=== PATIENT | female | born 1985 | race Hispanic/Latino ===

== ENCOUNTER 2018-01-07 11:27 | Observation (INO) | payer SELFPAY ==
--- NOTE | 2018-01-07 12:04 | RAD ---
PORTABLE URIGHT FRONTAL CHEST RADIOGRAPH: DATE: 01/07/18. COMPARISON: None. HISTORY: Left-sided weakness, left-sided numbness. FINDINGS: Heart and mediastinal contours within normal limits. No pneumothorax, pleural fluid, focal consolida tion, or alveolar edema. IMPRESSION: No acute findings. POS: ELENAH
[2018-01-07 12:07] LABS: #Eosinphils 0.1 thou/uL (0.0-0.7); #Lymphocytes 1.4 thou/uL (1.20-3.40); #Monocytes 0.4 thou/uL (0.11-0.59); #Neutrophils 2.5 thou/uL (1.40-6.50); %Basophils 0.3 % (0.0-1.0); %Eosinophils 1.5 % (0.0-10.0); %Lymphocytes 32.8 % (21.0-51.0); %Monocytes 9.5 % (0.0-10.0); Hemoglobin 11.9 g/dL (12.0-16.0); Mean Corpuscular HGB CONC 33.2 g/dL (32.0-36.0); Mean Corpuscular Hemoglobin 29.6 pg (27.0-31.0); Mean Corpuscular Volume 88.9 fL (78.0-98.0); Mean Platelet Volume 8.8 fL (7.4-10.4); Platelet Count 182 thou/uL (130-400); RBC Distribution Width 11.8 % (11.5-14.5); Red Blood Cell (RBC) Count 4.01 mill/uL (4.20-5.40); White Blood Cell (WBC) Count 4.4 thou/uL (4.8-10.8)
[2018-01-07 12:27] LABS: ALT (SGPT) 15 U/L (8-55); AST (SGOT) 21 U/L (5-34); Albumin 4.3 g/dL (3.5-5.0); Alkaline Phosphatase 68 U/L (40-150); Anion Gap 10 mmol/L (10-20); BUN (Urea Nitrogen) 8 mg/dL (7.0-18.7); Bilirubin, Total 0.4 mg/dL (0.2-1.2); Calc. Creatinine Clearance 0 mL/min (70-130); Calcium 9.4 mg/dL (7.8-10.44); Carbon Dioxide 26 mmol/L (22-29); Chloride 107 mmol/L (98-107); Estimated GFR-MDRD Greater than 90; Globulin 3.1 g/dL (2.4-3.5); Glucose 90 mg/dL (70-105); Potassium 4.1 mmol/L (3.5-5.1); Protein, Total 7.4 g/dL (6.0-8.3); Sodium 139 mmol/L (136-145)
[2018-01-07 12:30] LABS: CKMB 0.7 ng/mL (0-6.6); Troponin I Less than 0.010 ng/mL (< 0.028)
--- NOTE | 2018-01-07 12:32 | CT ---
CT OF THE HEAD: DATE: 01/07/18. COMPARISON: None. HISTORY: Left-sided numbness. TECHNIQUE: Serial axial CT imaging is obtained at 5 mm intervals from the vertex through the skull base without contrast. FINDINGS: The imaged paranasal sinuses/mastoid air cells are well aerated. There is no displaced calvarial fra cture. There is ventriculomegaly noted bilaterally. Bilateral lateral ventricles are enlarged and demonstra te a rounded configuration in the region of the frontal horns. The third ventricle appears dilated a s well. The 4th ventricle is mildly prominent but less so than the lateral ventricles and the 3rd ve ntricle. There is no intracranial hemorrhage, midline shift, or mass effect. IMPRESSION: Ventricular enlargement, especially the 3rd ventricle and bilateral lateral ventricles. This could b e on the basis of a degree of aqueductal stenosis. Under[place] obstructing lesion cannot be fully excl uded. Recommend further evaluation via brain MRI with and without contrast. POS: TOSHIA
--- NOTE | 2018-01-07 13:28 | HP ---
PRIMARY CARE PHYSICIAN: [facility] call admission. REASON FOR ADMISSION: Headache and left upper and lower extremity burning paraesthesia. HISTORY OF PRESENT ILLNESS: This is a 32-year-old female, who speaks Pakistani only, who is accompanied by her . History obtained with a ship manager phone. The patient reports that, 3 days ago, she was experiencing throbbing headache, unilateral, 6/10 in intensity without any association of nausea, vomiting, photophobia, or phonophobia. Patient was taking ibuprofen periodically for her severe headache. Today, she experienced left upper and lower extremity as well as facial burning paraesthesia, and some numbness. She denies any difficulty walking. She denies any associated motor weakness. She denies any shortness of breath. She denies any diplopia or blurred vision. She denies any new medication taken recently. She denies any vomiting or any chest pain or palpitation. She denies any UTI symptoms. She denies any constipation, diarrhea. REVIEW OF SYSTEMS: The following complete review of systems was negative, unless otherwise mentioned in the HPI or below: Constitutional: Weight loss or gain, ability to conduct usual activities. Skin: Rash, itching. Eyes: Double vision, pain. ENT/Mouth: Nose bleeding, neck stiffness, pain, tenderness. Cardiovascular: Palpitations, dyspnea on exertion, orthopnea. Respiratory: Shortness of breath, wheezing, cough, hemoptysis, fever, or night sweats. Gastrointestinal: Poor appetite, abdominal pain, heartburn, nausea, vomiting, constipation, or diarrhea. Genitourinary: Urgency, frequency, dysuria, nocturia. Musculoskeletal: Pain, swelling. Neurologic/Psychiatric: Anxiety, depression. Allergy/Immunologic: Skin rash, bleeding tendency. Please see my HPI for pertinent positive and negative. All other review of systems reviewed and negative except as mentioned in the HPI. ALLERGIES: No known drug allergy. CURRENT HOME MEDICATIONS: The patient is not taking any prescribed medication, but she was lately taking ibuprofen [id number] as needed basis for her headache. PAST MEDICAL HISTORY: Reviewed and negative other than remote history of nephrolithiasis. PAST SURGICAL HISTORY: . PAST PSYCHIATRIC HISTORY: Reviewed and negative. SOCIAL HISTORY: Patient is and lives at home. No history of tobacco, alcohol, or illicit drug abuse. FAMILY HISTORY: No strong family history of premature coronary artery disease, stroke, or cancer. EMERGENCY ROOM COURSE: Reviewed. PHYSICAL EXAMINATION: VITAL SIGNS: On arrival, blood pressure 118/77, pulse 83, respiratory rate 18, temperature 98.2, saturation 99% on room air, weight 96.6 kilograms. GENERAL: Patient is currently alert, awake, in no obvious acute distress. HEENT: Head: Normocephalic, atraumatic. Eyes: Pupils round, reactive to light. Extraocular muscle intact. No nystagmus. ENT: Oropharynx within normal limits. Moist mucous membranes. No oral lesion, no pharyngeal erythema , no exudate. NECK: Supple, no JVD, no thyromegaly, no carotid bruit, no jugular venous distention. LUNGS: Clear to auscultation without any rhonchi or rales. CARDIAC: S1 and S2, regular. No murmur, no gallop, no rub. ABDOMEN: Soft, bowel sounds present, nontender, nondistended. No organomegaly , no mass, no suprapubic tenderness. BACK EXAMINATION: Unremarkable, no CVA tenderness. EXTREMITIES: Upper extremities, passive movement of all joints are normal. Lower extremities, no edema. Good distal pulsation. SKIN: No skin rash. HEMATOLOGICAL SYSTEM: No lymphadenopathy. NEUROLOGIC: The patient is alert and oriented x3. Cranial nerves II-XII intact. Motor 5/5 in all 4 limbs. Sensation: The patient does have subjective paraesthesia on left upper and lower extremity as well as on face. No cerebellar sign. Plantar bilateral flexor. SIGNIFICANT LABORATORY DATA: CT brain done in the emergency room, which is showing ventricular enlargement, especially third and bilateral lateral ventricle. Chest x-ray, based on my review, no acute cardiopulmonary process. CBC: WBC 4.4, hemoglobin 11.9, platelets 182. Sodium 139, potassium 4.1, chloride 107, carbon dioxide 26, anion gap 10, BUN 8, creatinine 0.64, glucose 90, calcium 9.4. LFT: AST 21, ALT 15, alkaline phosphatase 68, albumin 4.3, CK -MB 0.7, troponin 0.010. ASSESSMENT: 1. Pulsatile headache. 2. Ventricular enlargement, especially third and bilateral lateral ventricle, rule out aqueductal stenosis. Another differential is pseudotumor cerebri, secondary hydrocephalus from obstruction needs to be excluded. 3. Leukopenia. 4. Normocytic-normochromic anemia. 5. Morbid obesity. PLAN: Observation to stroke floor, neuro check q.4 hourly. Neurology consult. MRI brain. Symptomatic treatment for headache. We will check TSH, lipid profile, and homocysteine. Deep venous thrombosis prophylaxis not needed, because we are expecting discharge in 24 hours. Gastrointestinal prophylaxis, Pepcid 20 mg p.o. b.i.d. Code status: The patient is FULL CODE. Patient's is surrogate decision maker. Disposition plan based on clinical course and Neurology recommendation. Plan of care discussed with the patient and her at bedside in the emergency room. ESAU
[2018-01-07] MEDS ORDERED: Eucerin (Mineral Oil/Petrolatum,White) 30 gm Jar TOP PRN (14:35)
[2018-01-07] MEDS ORDERED: Artificial Tears 18 DROP/0.9 ML EA EYE PRN (14:35)
[2018-01-07] MEDS ORDERED: Mag-Al 1200 mg/1200 mg/30 ML UDCUP PO PRN (14:35)
[2018-01-07] MEDS ORDERED: Ketorolac Tromethamine 30 MG/ML VIAL IVP PRN (14:35)
[2018-01-07] MEDS ORDERED: Acetaminophen 325 MG TAB PO PRN (14:35)
[2018-01-07] MEDS ORDERED: Milk Of Magnesia 30 ML UDCUP PO PRN (14:35)
[2018-01-07] MEDS ORDERED: Sodium Chloride 0.65% Nasal 44 ML BOT EA NARE PRN (14:35)
[2018-01-07] MEDS ORDERED: Loratadine 10 MG TAB PO PRN (14:35)
[2018-01-07] MEDS ORDERED: Senokot 8.6 MG TAB PO PRN (14:35)
[2018-01-07] MEDS ORDERED: Diabetic Tussin 200 MG/10 ML UDCUP PO PRN (14:35)
[2018-01-07] MEDS ORDERED: Ondansetron PF 4 MG/2 ML Vial IVP PRN (14:35)
[2018-01-07] MEDS ORDERED: Chloraseptic Spray 180 ml Bottle PO PRN (14:35)
[2018-01-07] MEDS ORDERED: Loperamide HCl 2 MG CAP PO PRN (14:35)
[2018-01-07] MEDS ORDERED: Zolpidem Tartrate 5 MG TAB PO PRN (14:35)
[2018-01-07] MEDS ORDERED: Ondansetron ODT 4 MG TAB PO PRN (14:35)
[2018-01-07 15:28] VITALS: BMI 37.3
[2018-01-07] MEDS: HYDROcodone/Acetaminophen 5/325 mg Tablet PO PRN (18:19)
--- NOTE | 2018-01-07 19:25 | CON ---
DATE OF CONSULTATION: 01/07/2018 CHIEF COMPLAINT: Left-sided numbness and headache. HISTORY OF PRESENT ILLNESS: The patient reports she has had left leg pain for about a month and she had left-sided numbness, which started about 2-3 days ago and she felt tightness of the muscles in her chest and she reports her symptoms are better now, but she has a left-sided headache on the face and upper cheek area. No weakness is described, no symptoms on the right side. No history of dizziness or blurred vision. PAST MEDICAL HISTORY: Kidney stones in the past, in the past. ALLERGIES: No known drug allergies. MEDICATIONS AT HOME: None. FAMILY HISTORY: Negative for any stroke or seizures in the family. REVIEW OF SYSTEMS: Pulmonary: Normal. Negative for shortness of breath or chest pain or cough. Cardiac: Negative for chest pain or palpitations. Dermatologic: Negative for rash or any irritation of her, skin or lesions of the skin. Neurologic: Positive for headache, numbness on the left side and muscle tightness in the left chest area. Endocrine: Negative for any thyroid dysfunction or diabetes. Psychiatric: Negative for depression or anxiety. Ophthalmologic: Negative for double vision. Negative for pain. SOCIAL HISTORY: She is and lives at home. No history of drug use or alcohol use. LABORATORY DATA: White count is 4.4, hemoglobin 11.9, hematocrit 35.7, platelets 182. Sodium 139, potassium 4.1, chloride 107, bicarbonate 26, BUN 8, creatinine 0.[address] of the head showed ventricular enlargement, particularly third ventricle and bilateral lateral ventricles. This could be due to aqueductal stenosis and underlying obstructive lesion cannot be excluded and an MRI is recommended. MRI is pending at this time. PHYSICAL EXAMINATION: VITAL SIGNS: Blood pressure 116/73, temperature 97.5, pulse 72, respiratory rate 16. GENERAL APPEARANCE: Well-built, well-nourished lady who seems to be comfortable in bed. CHEST: Clear vesicular breathing. CARDIOVASCULAR: S1, S2 heard, no murmurs. ABDOMEN: Soft, nontender, no organomegaly noted. NEUROLOGIC: Higher intellectual functions. Cranial nerves: Normal extraocular movements. Pupils reactive to light and accommodation. No facial asymmetry noted. Normal sensation of face bilaterally. Normal hearing to finger rub bilaterally. Tongue midline, no atrophy noted. Normal elevation of palate. Motor examination: Bulk normal, tone normal, strength 5/5 in upper and lower extremities in iliopsoas, hamstrings, quadriceps, ankle dorsiflexion, plantar flexion, deltoid, biceps, triceps, wrist extension/flexion, finger extension and flexion bilaterally. Deep tendon reflexes were absent throughout in upper and lower extremities. SENSORY: Normal touch, pinprick, proprioception and vibration bilaterally in upper and lower extremities. CEREBELLAR: Normal [id number]-igdy, heel to marcano. IMPRESSION: The patient is a 32-year-old lady with a one month history of left leg numbness and worsening of the numbness in the last 2 days with involvement of face and left side of the body and she also complains of headache on the left side. She developed some chest tightness as well on the left and she comes to the hospital. Currently, at this time of my evaluation, she reports she is back to baseline. Her CT scan is abnormal with possible aqueductal stenosis and possible underlying mass effect with the lesion, which cannot be excluded. It is recommended that she go through an MRI of the brain. Diagnosis is consistent with possible symptoms associated with hydrocephalus, but it is unclear why she has numbness. RECOMMENDATIONS: Please obtain MRI scan of the brain with and without gadolinium and call Neurology tomorrow if MRI is abnormal. Please consult Neurosurgery as well for evaluation of hydrocephalus. ESAU
[2018-01-07] MEDS: Famotidine 20 MG TAB PO SCH (20:28)
[2018-01-08 05:53] LABS: Cardiac Risk 5.7 (Less than 4.5)
[2018-01-08] MEDS: Famotidine 20 MG TAB PO SCH (09:41)
--- NOTE | 2018-01-08 10:15 | MRI ---
BRAIN MRI WITH AND WITHOUT CONTRAST: Date: 01/08/18 COMPARISON: None. CORRELATION: Noncontrast head CT dated 01/07/18. HISTORY: Hydrocephalus. Possible aqueductal stenosis. Evaluate for mass. TECHNIQUE: Brain MRI is performed without intravenous Gadolinium administration. Multisequential, multiplanar im aging is performed. FINDINGS: No hemorrhage on the axial gradient echo sequence. Note is made of a normal appearing marrow signal intensity of the calvarium. Midline brain parenchyma l structures appear to be unremarkable. There is no evidence of a mass at the level of sylvian aquedu ct. The tectum is unremarkable. There is prominence of the ventricular system. Central arterial flow-voids are maintained. Absent res tricted diffusion. Adequate aeration of the sinuses and mastoid air cells. No parenchymal mass, mass effect, or midline shift. Basilar cisterns are patent. Brain volume is age- appropriate. Cortical lockwood-white matter differentiation is preserved. No pathologic enhancement of the brain parenchyma. IMPRESSION: Dilatation of the ventricular system without an associated obstructing mass. Correlate for possible n onobstructing hydrocephalus. POS: TOSHIA
[2018-01-08 12:17] VITALS: BP 106/73; TEMP 98.7
--- NOTE | 2018-01-08 12:50 | PDOC.PN ---
- Subjective Encounter Start Date: 01/08/18 Encounter Start Time: 10:00 -: old records requested/rev Patient seen and examined. No new complaints. No overnight events - Objective Resuscitation Status: Resuscitation Status FULL:Full Resuscitation MAR Reviewed: Yes Vital Signs & Weight: Vital Signs (12 hours) Temp Pulse Resp BP Pulse Ox 01/08/18 12:00 98.7 F 75 18 106/73 97 01/08/18 08:40 98.2 F 70 16 01/08/18 07:56 98.2 F 70 16 109/76 98 01/08/18 04:49 97.9 F 66 18 98/63 97 Weight Weight 217 lb 11.2 oz I&O: 01/07/18 01/08/18 01/09/18 06:59 06:59 06:59 Intake Total 390 Output Total 1 Balance 389 Result Diagrams: 01/07/18 11:56 01/07/18 11:56 Radiology Reviewed by me: Yes (mri brain) EKG Reviewed by me: Yes Phys Exam - Physical Examination Constitutional: NAD HEENT: PERRLA, moist MMs, sclera anicteric Neck: no JVD, supple Respiratory: no wheezing, no rales, no rhonchi Cardiovascular: RRR, no significant murmur, no rub Gastrointestinal: soft, non-tender, no distention, positive bowel sounds Musculoskeletal: no edema, pulses present Neurological: non-focal, normal sensation, moves all 4 limbs Psychiatric: normal affect, A&O x 3 Skin: no rash, normal turgor Dx/Plan (1) Headache Code(s): R51 - HEADACHE Status: Acute (2) Paresthesia and pain of left extremity Code(s): M79.609 - PAIN IN UNSPECIFIED LIMB; R20.2 - PARESTHESIA OF SKIN Status: Acute (3) Obesity (BMI 30-39.9) Code(s): E66.9 - OBESITY, UNSPECIFIED Status: Chronic (4) Hydrocephalus Code(s): G91.9 - HYDROCEPHALUS, UNSPECIFIED Status: Suspected - Plan cont current plan of care, plan discussed w/ family * Neurology and neurosurgeon on case * further plan based on their recommendation * medication reviewed as below * symptomatic treatment. Review of Systems - Review of Systems ENT: negative: Ear Pain, Ear Discharge, Nose Pain, Nose Discharge, Nose Congestion, Mouth Pain, Mouth Swelling, Throat Pain, Throat Swelling, Other Respiratory: negative: Cough, Dry, Shortness of Breath, Hemoptysis, SOB with Excertion, Pleuritic Pain, Sputum, Wheezing Cardiovascular: negative: chest pain, palpitations, orthopnea, paroxysmal nocturnal dyspnea, edema, light headedness, other Gastrointestinal: negative: Nausea, Vomiting, Abdominal Pain, Diarrhea, Constipation, Melena, Hematochezia, Other Genitourinary: negative: Dysuria, Frequency, Incontinence, Hematuria, Retention , Other Musculoskeletal: negative: Neck Pain, Shoulder Pain, Arm Pain, Back Pain, Hand Pain, Leg Pain, Foot Pain, Other - Medications/Allergies Allergies/Adverse Reactions: Allergies Allergy/AdvReac Type Severity Reaction Status Date / Time No Known Drug Allergies Allergy Verified 01/07/18 14:53 Medications: Current Medications Acetaminophen (Tylenol) 650 mg PO Q4H PRN PRN Reason: Headache/Fever or Pain Hydrocodone Bitart/Acetaminophen (Camp[place] 5/325) 1 tab PO Q4H PRN PRN Reason: Moderate Pain (4-6) Last Admin: 01/07/18 18:19 Dose: 1 tab Al Hydroxide/Mg Hydroxide (Maalox) 30 ml PO Q6H PRN PRN Reason: Heartburn or Indigestion Artificial Tears (Tears Naturale) 0 drop EA EYE PRN PRN PRN Reason: Dry Eyes Famotidine (Pepcid) 20 mg PO BID AVRIL Last Admin: 01/08/18 09:41 Dose: 20 mg Guaifenesin (Robitussin Sf) 200 mg PO Q4H PRN PRN Reason: Cough Ketorolac Tromethamine (Toradol) 15 mg IVP Q6H PRN PRN Reason: Moderate Pain (4-6) Stop: 01/12/18 14:36 Loperamide HCl (Imodium) 2 mg PO PRN PRN PRN Reason: Diarrhea/Loose Stools Loratadine (Claritin) 10 mg PO DAILYPRN PRN PRN Reason: Sinus Symptoms Magnesium Hydroxide (Milk Of Magnesium) 30 ml PO DAILYPRN PRN PRN Reason: Constipation Mineral Oil/White Petrolatum (Eucerin Cream) 0 gm TOP BIDPRN PRN PRN Reason: Dry Skin Ondansetron HCl (Zofran Odt) 4 mg PO Q6H PRN PRN Reason: Nausea/Vomiting Ondansetron HCl (Zofran) 4 mg IVP Q6H PRN PRN Reason: Nausea/Vomiting Phenol (Chloraseptic [place] 180 Ml Bot) 0 ml PO PRN PRN PRN Reason: Sore Throat Senna (Senokot) 2 tab PO HSPRN PRN PRN Reason: Constipation Sodium Chloride (Greer Nasal [place] 0.65%) 0 ml EA NARE QIDPRN PRN PRN Reason: Nasal Congestion Zolpidem Tartrate (Ambien) 5 mg PO HSPRN PRN PRN Reason: Insomnia
[2018-01-08] MEDS: HYDROcodone/Acetaminophen 5/325 mg Tablet PO PRN (12:54)
--- NOTE | 2018-01-08 13:57 | DIS ---
DATE OF ADMISSION: 01/07/2018 DATE OF DISCHARGE: 01/08/2018 PRIMARY CARE PHYSICIAN: [facility] call admission. DISCHARGE DISPOSITION: Home. PRIMARY DISCHARGE DIAGNOSIS: Ventriculomegaly ? etiology. SECONDARY DISCHARGE DIAGNOSIS: Obesity with body mass index 37. PRIMARY PROCEDURE/OPERATION: None. RADIOLOGICAL INVESTIGATION: Chest x-ray normal. CT brain showed ventriculomegaly. MRI brain showed ventriculomegaly. SIGNIFICANT LABORATORY DATA: WBC 4.4, hemoglobin 11.9, platelets 182. BMP and LFT normal. LDL 128, TSH 1.98. Homocysteine 5.25. Cardiac enzymes negative. DISCHARGE MEDICATIONS: No specific medications prescribed upon discharge. The patient will continue ibuprofen. The patient will continue Aleve 220 mg t.i.d. p.r.n. basis. CONTRAINDICATIONS: None. CODE STATUS: FULL CODE. INPATIENT CONSULTANTS: Neurology and Neurosurgery was consulted while in hospital. TEST RESULTS PENDING ON DISCHARGE: None. ALLERGIES: No known drug allergy. DISCHARGE PLAN: Post hospital, the patient will follow up with primary care physician. The patient is also instructed to follow up with the Neurology and neurosurgeon as an outpatient basis. HOSPITAL COURSE: A 32-year-old female who came to hospital with complaint of headache. She was also complaining of paraesthesia and burning sensation in left upper and lower extremity as well as on fa ce. The patient was also having vague chest discomfort. The patient's CT brain showed ventriculomeg elier. We kept this patient in hospital for neuro check. We did MRI brain which showed ventriculomega ly and suspected for normal pressure hydrocephalus, but clinically the patient does not have any pict ure of nonobstructive hydrocephalus. Neurosurgery is consulted and their opinion is pending. The lenore becerra may need outpatient neurology and Neurosurgery follow up. Plan of care discussed with the patient with a metal worker. Overall, the patient is medicall y stable. The patient is seen and examined at bedside today. Please see my progress note from today for further details.
--- NOTE | 2018-01-20 18:18 | EKG ---
Test Reason : CP Blood Pressure : / mmHG Vent. Rate : 080 BPM Atrial Rate : 080 BPM P-R Int : 146 ms QRS Dur : 094 ms QT Int : 378 ms P-R-T Axes : 033 031 019 degrees QTc Int : 435 ms Normal sinus rhythm Normal ECG Confirmed by SERGE MURPHY, KENZIE Dennis ([id number]), department editor ASHLEY ROBISON ([id number]) on 01/20/2018 6:18:07 PM Referred By: Confirmed By:KENZIE VALENTINE MD
== END 2018-01-08 15:31 | disposition home or self-care (01) ==
LOC: ERS 11:27 → 2SE 12:30
PROVIDERS: ADMIT Internal Medicine; ATTEND Internal Medicine
DX: G93.89 Other specified disorders of brain (principal); E66.9 Obesity, unspecified; Z68.37 Body mass index [BMI] 37.0-37.9, adult
CPT/HCPCS: 36415; 70450; 70553; 71045; 80053; 80061; 82553; 83090; 84443; 84484; 85025; 93005; 94760; G0378